=== PATIENT | female | born 1960 | race Caucasian/White ===

== ENCOUNTER 2022-10-23 13:40 | Emergency (ER) | payer OTHER ==
[~2022-10-23] VITALS: Ht 157.5 cm; Wt 72.6 kg
[2022-10-23 13:43] VITALS: BP_SYST 144; PULSE 68; RESP 20; TEMP 98.3; O2SAT 98
[2022-10-23 14:18] LABS: BASOPHILS % (AUTO) 0.5 % (0.0-2.0); EOSINOPHILS # (AUTO) 0.1 K/uL (0.0-0.4); EOSINOPHILS % (AUTO) 0.6 % (0.0-4.0); HEMATOCRIT 42.1 % (36-48); HEMOGLOBIN 14.3 g/dL (12.0-16.0); LYMPHOCYTES # (AUTO) 1.1 K/uL (1.0-5.5); LYMPHOCYTES % (AUTO) 12.3 % (20.5-51.5); MEAN CORPUSCULAR HEMOGLOBIN 30 pg (27-31); MEAN CORPUSCULAR HGB CONC 34 % (32-36); MEAN CORPUSCULAR VOLUME 90 fL (79.0-98.0); MONOCYTES # (AUTO) 0.5 K/uL (0.0-1.0); MONOCYTES % (AUTO) 5.6 % (1.7-9.3); NEUTROPHILS # (AUTO) 7.2 K/uL (1.8-7.7); PLATELET COUNT (AUTO) 237 K/uL (130-430); RED BLOOD CELL COUNT(AUTO) 4.69 MIL/uL (4.2-6.2); WHITE BLOOD COUNT (AUTO) 8.9 K/uL (4.8-10.8)
[2022-10-23 14:42] LABS: ALANINE AMINOTRANSFERASE 16 U/L (12-78); ALBUMIN 3.9 g/dL (3.4-4.8); ANION GAP 12 (5-15); ASPARTATE AMINOTRANSFERASE 19 U/L (10-37); CALCIUM 9.5 mg/dL (8.4-11.0); CHLORIDE 100 mmol/L (98-107); CREATININE 0.86 mg/dL (0.55-1.30); GFR AFRICAN AMERICAN 87 mL/min (>90); GLUCOSE 171 mg/dL (74-106); LIPASE 38 U/L (73-393); TOTAL BILIRUBIN 0.4 mg/dL (0.0-1.0); UREA NITROGEN, BLOOD 13 mg/dL (8-21)
[2022-10-23] MEDS ORDERED: NACL 0.9% 1,000 ML IV ONE (15:15)
[2022-10-23 16:14] LABS: BILIRUBIN,URINE NEGATIVE (NEGATIVE); BLOOD, URINE NEGATIVE (NEGATIVE); CLARITY/URINE SL CLOUDY (CLEAR); COLOR,URINE YELLOW (YELLOW); GLUCOSE,URINE NEGATIVE (NEGATIVE); KETONES,URINE 1+ (NEGATIVE); LEUKOCYTE ESTERASE ,URINE NEGATIVE (NEGATIVE); NITRITE, URINE NEGATIVE (NEGATIVE); PH,URINE 7.5 (5.0-8.0); PROTEIN URINE TRACE (NEGATIVE); UROBILINOGEN,URINE 0.2 (0.2-1.0)
[2022-10-23] MEDS ORDERED: IBUP-1969 PO (16:27)
[2022-10-23] MEDS ORDERED: METR-154 PO (16:27)
[2022-10-23] MEDS ORDERED: ONDA8TAB60 PO (16:27)
[2022-10-23 16:34] LABS: BACTERIA,URINE FEW /HPF (None Seen); MUCUS,URINE None Seen /LPF (None Seen); RBC,URINE NONE SEEN /HPF (0-3); WBC,URINE 0-3 /HPF (0-3)
[2022-10-23 18:09] VITALS: BP_SYST 134; PULSE 68; RESP 20; TEMP 98.3; O2SAT 98
== END 2022-10-23 16:45 | disposition home or self-care (01) ==
LOC: SED 13:40
DX: K57.92 Diverticulitis of intestine, part unspecified, without perforation or abscess without bleeding (principal); R11.2 Nausea with vomiting, unspecified; R19.7 Diarrhea, unspecified; R10.13 Epigastric pain; R51.9 Headache, unspecified; Z88.0 Allergy status to penicillin; Z79.899 Other long term (current) drug therapy
CPT/HCPCS: 99285; 70450; 96360; 71045; 80053; 81000; 83690; 85025; 87040; 87086; 84484; 36415; 93005; 76376; 74176; 83605; J7030

== ENCOUNTER 2023-09-08 12:41 | Emergency (ER) | payer OTHER ==
[~2023-09-08] VITALS: Ht 160 cm; Wt 67.1 kg
[~2023-09-08 12:41] MED LIST: IBUP-1969 PO; METR-154 PO; ONDA8TAB60 PO
[2023-09-08 12:50] VITALS: BP_SYST 134; PULSE 84; RESP 22; TEMP 98.3; O2SAT 98
[2023-09-08 15:05] LABS: BASOPHILS # (AUTO) 0.1 K/uL (0.0-0.2); BASOPHILS % (AUTO) 0.5 % (0.0-2.0); EOSINOPHILS # (AUTO) 0.1 K/uL (0.0-0.4); HEMATOCRIT 40.5 % (36-48); HEMOGLOBIN 13.8 g/dL (12.0-16.0); LYMPHOCYTES # (AUTO) 1.5 K/uL (1.0-5.5); LYMPHOCYTES % (AUTO) 16.2 % (20.5-51.5); MEAN CORPUSCULAR HEMOGLOBIN 31 pg (27-31); MEAN CORPUSCULAR HGB CONC 34 % (32-36); MEAN CORPUSCULAR VOLUME 90 fL (79.0-98.0); MONOCYTES # (AUTO) 0.6 K/uL (0.0-1.0); MONOCYTES % (AUTO) 6.3 % (1.7-9.3); NEUTROPHILS # (AUTO) 7.1 K/uL (1.8-7.7); PLATELET COUNT (AUTO) 231 K/uL (130-430); RED CELL DISTRIBUTION WIDTH 13.4 % (9.0-15.0); WHITE BLOOD COUNT (AUTO) 9.4 K/uL (4.8-10.8)
[2023-09-08 15:50] LABS: ALBUMIN 3.5 g/dL (3.4-4.8); BILIRUBIN,DIRECT 0.1 mg/dL (0.0-0.3); CALCIUM 8.8 mg/dL (8.4-11.0); CREATININE 0.81 mg/dL (0.55-1.30); POTASSIUM 3.7 mmol/L (3.5-5.1); TOTAL BILIRUBIN 0.4 mg/dL (0.0-1.0); TOTAL PROTEIN, SERUM 7.5 g/dL (6.4-8.3)
[2023-09-08] MEDS: OLANZapine IntraMuscular 10 MG VIAL (FOR I.M. INJECTION ONLY) IM ONE (16:00)
[2023-09-08 16:11] LABS: BILIRUBIN,URINE NEGATIVE (NEGATIVE); BLOOD, URINE NEGATIVE (NEGATIVE); CLARITY/URINE CLEAR (CLEAR); COLOR,URINE YELLOW (YELLOW); GLUCOSE,URINE NEGATIVE (NEGATIVE); KETONES,URINE NEGATIVE (NEGATIVE); LEUKOCYTE ESTERASE ,URINE NEGATIVE (NEGATIVE); NITRITE, URINE NEGATIVE (NEGATIVE); PH,URINE 5.5 (5.0-8.0); PROTEIN URINE NEGATIVE (NEGATIVE); UROBILINOGEN,URINE 0.2 (0.2-1.0)
[2023-09-08] MEDS: MORPHINE 4 MG INJ. 4 MG/ML VIAL IVP ONE (17:32)
[2023-09-08 18:03] VITALS: BP_SYST 134; PULSE 84; RESP 22; TEMP 98.3; O2SAT 98
== END 2023-09-08 18:04 | disposition home or self-care (01) ==
LOC: SED 12:41
DX: R10.9 Unspecified abdominal pain (principal); M54.9 Dorsalgia, unspecified; R42 Dizziness and giddiness; R11.0 Nausea; F03.90 Unspecified dementia, unspecified severity, without behavioral disturbance, psychotic disturbance, mood disturbance, and anxiety; Z88.0 Allergy status to penicillin; Z79.899 Other long term (current) drug therapy
CPT/HCPCS: 99285; 74176; 96374; 80076; 80048; 81001; 83690; 85025; 36415; J2270; 81003; J3490

== ENCOUNTER 2023-09-14 10:42 | Emergency (ER) | payer OTHER ==
[~2023-09-14] VITALS: Ht 162.6 cm; Wt 81.6 kg
[2023-09-14 10:45] VITALS: PULSE 86; RESP 18; TEMP 97.3; O2SAT 97
[2023-09-14 11:48] LABS: BASOPHILS % (AUTO) 0.7 % (0.0-2.0); EOSINOPHILS # (AUTO) 0.1 K/uL (0.0-0.4); EOSINOPHILS % (AUTO) 1.3 % (0.0-4.0); HEMATOCRIT 40.3 % (36-48); HEMOGLOBIN 13.6 g/dL (12.0-16.0); LYMPHOCYTES # (AUTO) 1.3 K/uL (1.0-5.5); LYMPHOCYTES % (AUTO) 21.7 % (20.5-51.5); MEAN CORPUSCULAR HEMOGLOBIN 30 pg (27-31); MEAN CORPUSCULAR HGB CONC 34 % (32-36); MEAN CORPUSCULAR VOLUME 90 fL (79.0-98.0); MONOCYTES # (AUTO) 0.5 K/uL (0.0-1.0); MONOCYTES % (AUTO) 7.8 % (1.7-9.3); NEUTROPHILS % (AUTO) 68.5 % (40.0-70.0); PLATELET COUNT (AUTO) 222 K/uL (130-430); RED BLOOD CELL COUNT(AUTO) 4.49 MIL/uL (4.2-6.2); RED CELL DISTRIBUTION WIDTH 13.9 % (9.0-15.0); WHITE BLOOD COUNT (AUTO) 5.9 K/uL (4.8-10.8)
[2023-09-14] MEDS: HALOPERIDOL LACTATE 5 MG/ML VIAL IM ONE (11:53)
[2023-09-14 12:09] LABS: ANION GAP 10 (5-15); CALCIUM 8.9 mg/dL (8.4-11.0); CARBON DIOXIDE 26 mmol/L (23-29); CHLORIDE 105 mmol/L (98-107); CREATININE 0.92 mg/dL (0.55-1.30); GFR AFRICAN AMERICAN 80 mL/min (>90); GLUCOSE 117 mg/dL (74-106); POTASSIUM 3.5 mmol/L (3.5-5.1); SODIUM SERUM 141 mmol/L (136-145); UREA NITROGEN, BLOOD 10 mg/dL (8-21)
[2023-09-14 12:11] LABS: GFR NON AFRICAN-AMERICAN 66 mL/min (>90)
[2023-09-14 12:42] LABS: BILIRUBIN,URINE NEGATIVE (NEGATIVE); BLOOD, URINE NEGATIVE (NEGATIVE); CLARITY/URINE CLEAR (CLEAR); COLOR,URINE YELLOW (YELLOW); GLUCOSE,URINE NEGATIVE (NEGATIVE); KETONES,URINE TRACE (NEGATIVE); LEUKOCYTE ESTERASE ,URINE NEGATIVE (NEGATIVE); NITRITE, URINE NEGATIVE (NEGATIVE); PROTEIN URINE NEGATIVE (NEGATIVE)
[2023-09-14] MEDS ORDERED: MAGN100C6 PO (13:13)
[2023-09-14] MEDS ORDERED: BENZ100C92 PO (13:13)
[2023-09-14] MEDS ORDERED: ACET-1443 PO (13:13)
[2023-09-14] MEDS ORDERED: DIPH50CA38 PO (13:13)
[2023-09-14] MEDS ORDERED: BISA10SU61 RC (13:13)
[2023-09-14] MEDS ORDERED: IBUP-1503 PO (13:13)
[2023-09-14] MEDS ORDERED: ONDA8TAB9 PO (13:13)
[2023-09-14] MEDS ORDERED: HAL1 PO (13:13)
[2023-09-14] MEDS ORDERED: ESCI-6 PO (13:13)
[2023-09-14] MEDS ORDERED: FLUT50BL (13:13)
[2023-09-14] MEDS ORDERED: ATOR40TA68 PO (13:13)
[2023-09-14 15:49] VITALS: BP_SYST 127; PULSE 66; RESP 16; TEMP 98.4; O2SAT 95
== END 2023-09-14 15:25 | disposition short-term general hospital (02) ==
LOC: SED 10:42
DX: R40.4 Transient alteration of awareness (principal); R53.1 Weakness; Z20.822 Contact with and (suspected) exposure to COVID-19; Z88.0 Allergy status to penicillin; Z79.899 Other long term (current) drug therapy; Z79.2 Long term (current) use of antibiotics
CPT/HCPCS: 99285; 70450; 71045; 87426; 80048; 81001; 85025; 84484; 36415; 93005; 96372; J1630; 81003

== ENCOUNTER 2023-11-10 12:31 | Emergency (ER) | payer OTHER ==
[~2023-11-10] VITALS: Ht 157.5 cm; Wt 73.0 kg
[~2023-11-10 12:31] MED LIST changes: +ACET-1443 PO; +ATOR40TA68 PO; +BENZ100C92 PO; +BISA10SU61 RC; +DIPH50CA38 PO; +ESCI-6 PO; +FLUT50BL; +HAL1 PO; +IBUP-1503 PO; -IBUP-1969 PO; +MAGN100C6 PO; -METR-154 PO; -ONDA8TAB60 PO; +ONDA8TAB9 PO
[2023-11-10 12:40] VITALS: BP_SYST 151; PULSE 81; RESP 18; TEMP 98; O2SAT 97
[2023-11-10 14:32] VITALS: BP_SYST 144; PULSE 80; RESP 16; O2SAT 97
== END 2023-11-10 14:32 | disposition home or self-care (01) ==
LOC: SED 12:31
DX: M25.551 Pain in right hip (principal); R10.2 Pelvic and perineal pain; R41.0 Disorientation, unspecified; M79.604 Pain in right leg; E78.5 Hyperlipidemia, unspecified; F41.9 Anxiety disorder, unspecified; F32.A Depression, unspecified; Z88.0 Allergy status to penicillin; Z88.8 Allergy status to other drugs, medicaments and biological substances; Z79.899 Other long term (current) drug therapy; Z79.2 Long term (current) use of antibiotics
CPT/HCPCS: 72170-TC; 73502; 99284